=== PATIENT | male | born 1970 | race Caucasian/White ===

== ENCOUNTER 2017-11-15 19:55 | Emergency (ER) | payer SELFPAY ==
[~2017-11-15] VITALS: Ht 188 cm; Wt 88.9 kg
[2017-11-15 20:10] VITALS: BP_SYST 110
--- NOTE | 2017-11-15 20:10 | NUR ---
Patient to ER bed 08 to gown for evaluation. Side rails up. Report given to RAAD Lainez.
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
[2017-11-15] MEDS ORDERED: PROPOFOL DRIP 100 ML IV ONE (20:45)
[2017-11-15] MEDS ORDERED: NACL 0.9% 1,000 ML IV ONE (20:51)
--- NOTE | 2017-11-15 20:52 | NUR ---
ER at bedside examining patient.
--- NOTE | 2017-11-15 21:00 | NUR ---
Moderate consent for procedure form signed by patient. MD Dr. Olmos explained procedure and plan of care. Form placed in patient chart.
--- NOTE | 2017-11-15 21:15 | NUR ---
Team time out completed at bedside, prior to moderate sedation procedure.
--- NOTE | 2017-11-15 21:16 | NUR ---
Propofol 200mg/20ml given IVP by Dr. Olmos at bedside for moderate sedation procedure.
[2017-11-15 21:20] LABS: BASOPHILS # (AUTO) 0.3 K/uL (0.0-0.2); EOSINOPHILS # (AUTO) 0.2 K/uL (0.0-0.4); EOSINOPHILS % (AUTO) 1.1 % (0.0-4.0); HEMOGLOBIN 14.5 g/dL (14.0-18.0); MONOCYTES # (AUTO) 0.5 K/uL (0.0-1.0); MONOCYTES % (AUTO) 2.8 % (1.7-9.3)
[2017-11-15 21:22] LABS: BASOPHILS % (AUTO) 1.7 % (0.0-2.0); HEMATOCRIT 42.7 % (36-54); LYMPHOCYTES # (AUTO) 2.2 K/uL (1.0-5.5); LYMPHOCYTES % (AUTO) 13.1 % (20.5-51.5); MEAN CORPUSCULAR HEMOGLOBIN 33 pg (27-31); MEAN CORPUSCULAR HGB CONC 34 % (32-36); MEAN CORPUSCULAR VOLUME 96 fL (79.0-98.0); NEUTROPHILS # (AUTO) 13.8 K/uL (1.8-7.7); NEUTROPHILS % (AUTO) 81.3 % (40.0-70.0); PLATELET COUNT (AUTO) 230 K/uL (130-430); RED BLOOD CELL COUNT(AUTO) 4.46 MIL/uL (4.2-6.2); RED CELL DISTRIBUTION WIDTH 13.5 % (9.0-15.0)
[2017-11-15 21:58] LABS: CALCIUM 11.2 mg/dL (8.4-11.0); CREATININE 1.13 mg/dL (0.55-1.30); POTASSIUM 3.9 mmol/L (3.5-5.1)
[2017-11-15 21:59] LABS: PROTHROMBIN TIME 10.4 SECS (9.5-12.5)
[2017-11-15 22:02] LABS: ALBUMIN 4.4 g/dL (3.4-4.8); TOTAL BILIRUBIN 0.3 mg/dL (0.0-1.0)
[2017-11-15 22:10] VITALS: BP_SYST 133
--- NOTE | 2017-11-15 22:10 | NUR ---
Patient given written and verbal discharge instructions and verbalizes understanding. ER MD discussed with patient the results and treatment provided. Patient in stable condition. ID arm band removed. IV catheter removed intact and dressing applied, no active bleeding. Rx of Motrin given. Patient educated on pain management and to follow up with PMD. Pain Scale 3/10. Opportunity for questions provided and answered.
--- NOTE | 2017-11-15 22:10 | NUR ---
Moderate sedation form complete. See patient chart.
[2017-11-15 22:11] LABS: BILIRUBIN,URINE NEGATIVE (NEGATIVE); BLOOD, URINE NEGATIVE (NEGATIVE); CLARITY/URINE CLEAR (CLEAR); COLOR,URINE YELLOW (YELLOW); GLUCOSE,URINE NEGATIVE (NEGATIVE); KETONES,URINE NEGATIVE (NEGATIVE); LEUKOCYTE ESTERASE ,URINE NEGATIVE (NEGATIVE); NITRITE, URINE NEGATIVE (NEGATIVE); PROTEIN URINE NEGATIVE (NEGATIVE); UROBILINOGEN,URINE 0.2 (0.2-1.0)
== END 2017-11-15 22:10 | disposition home or self-care (01) ==
LOC: SED 19:55
DX: S43.015A Anterior dislocation of left humerus, initial encounter (principal); Z88.0 Allergy status to penicillin; X58.XXXA Exposure to other specified factors, initial encounter; Y93.89 Activity, other specified; Y92.89 Other specified places as the place of occurrence of the external cause; Y99.8 Other external cause status
CPT/HCPCS: 23650; 36415; 73020; 73030; 80053; 81003; 82150; 83690; 85025; 85610; 85730; 96360; 99152; 99285; J2704; J7030

== ENCOUNTER 2021-06-06 12:44 | Emergency (ER) | payer MEDICAID ==
[~2021-06-06] VITALS: Ht 188 cm; Wt 82.1 kg
[2021-06-06 12:45] VITALS: BP_SYST 120
--- NOTE | 2021-06-06 13:50 | NUR ---
JANEY Brown at bedside examining patient.
[2021-06-06] MEDS ORDERED: DIAZEPAM 5 MG TABLET (VALIUM) PO ONE (14:00)
--- NOTE | 2021-06-06 14:06 | NUR ---
Patient transported to radiology via gurney, accompanied by amanda.
--- NOTE | 2021-06-06 14:25 | NUR ---
OFF TO CT , NO DISTRESS
--- NOTE | 2021-06-06 14:28 | NUR ---
BACK FROM CT, NO CHANGE IN MENTATION, DENIES PAIN
[2021-06-06] MEDS ORDERED: ACETAMINOPHEN 500 MG TABLET ONE (14:48)
--- NOTE | 2021-06-06 15:30 | NUR ---
CALM, ALERT, RESP UNLABORED, SKIN WARM AND DRY. NO DISTRESS
--- NOTE | 2021-06-06 16:38 | NUR ---
DR CHRISTIANSON IN TO ASSESS, CALM, ALERT, RESP UNLABORED, NO DISTRESS
[2021-06-06] MEDS ORDERED: KETOROLAC TROMETHAMINE 60 MG/2 ML VIAL IM ONE (16:45)
[2021-06-06] MEDS ORDERED: NAPR-1172 PO (17:16)
--- NOTE | 2021-06-06 17:59 | NUR ---
TRANSPORTATION ETA IS 45 MINS
[2021-06-06 18:48] VITALS: BP_SYST 128
--- NOTE | 2021-06-06 18:49 | NUR ---
Patient given written and verbal discharge instructions and verbalizes understanding. ER MD discussed with patient the results and treatment provided. Patient in stable condition. ID arm band removed. Rx of NAPROXYN given. Patient educated on pain management and to follow up with PMD. Pain Scale 3/10 Opportunity for questions provided and answered. Medication side effect fact sheet provided.
== END 2021-06-06 18:49 | disposition home or self-care (01) ==
LOC: SED 12:44
DX: S33.5XXA Sprain of ligaments of lumbar spine, initial encounter (principal); Z88.0 Allergy status to penicillin; Z79.899 Other long term (current) drug therapy; X50.9XXA Other and unspecified overexertion or strenuous movements or postures, initial encounter; Y93.89 Activity, other specified; Y92.89 Other specified places as the place of occurrence of the external cause; Y99.8 Other external cause status
CPT/HCPCS: 72100; 96372; 99283; J1885